=== PATIENT | female | born 1960 | race Caucasian/White ===

== ENCOUNTER 2019-11-08 19:08 | Inpatient (IN) | payer BC ==
[~2019-11-08] VITALS: Ht 165.1 cm; Wt 78.1 kg
[2019-11-08 19:20] VITALS: BP_SYST 117
[2019-11-08 20:47] LABS: HEMATOCRIT 39.9 % (36-48); MEAN CORPUSCULAR HEMOGLOBIN 30 pg (27-31); MEAN CORPUSCULAR HGB CONC 33 % (32-36); MEAN CORPUSCULAR VOLUME 92 fL (79.0-98.0); PLATELET COUNT (AUTO) 407 K/uL (130-430); RED BLOOD CELL COUNT(AUTO) 4.36 MIL/uL (4.2-6.2); RED CELL DISTRIBUTION WIDTH 13.4 % (9.0-15.0); WHITE BLOOD COUNT (AUTO) 24.8 K/uL (4.8-10.8)
[2019-11-08 20:58] LABS: CALCIUM 9.6 mg/dL (8.4-11.0); CREATININE 1.18 mg/dL (0.55-1.30); POTASSIUM 4.7 mmol/L (3.5-5.1)
[2019-11-08] MEDS ORDERED: MORPHINE 4 MG/ML INJ. SYRINGE IVP ONE ×2 (21:00→23:30)
[2019-11-08] MEDS ORDERED: NACL 0.9% 1,000 ML IV ONE ×2 (21:00→23:30)
[2019-11-08] MEDS ORDERED: ONDANSETRON HCL 4 MG/2 ML VIAL IVP ONE ×2 (21:00→23:30)
[2019-11-08 21:02] LABS: BAND % (MANUAL) 4 % (0-6); BASOPHILS % (MANUAL) 0 % (0-2); EOSINOPHILS % (MANUAL) 0 % (0-7); LYMPHOCYTES % (MANUAL) 4 % (20-46); MONOCYTES % (MANUAL) 4 % (0-11)
[2019-11-08 21:03] LABS: ALBUMIN 2.1 g/dL (3.4-4.8); TOTAL BILIRUBIN 0.5 mg/dL (0.0-1.0)
[2019-11-08 21:34] LABS: INR 1.1 (0.8-1.2); PROTHROMBIN TIME 10.6 SECS (9.5-12.5)
[2019-11-08] MEDS ORDERED: metroNIDAZOLE 500 mg/NS 100 ML IV ONE (22:00)
[2019-11-08] MEDS ORDERED: FEM2.5 PO (22:16)
[2019-11-08] MEDS ORDERED: HYDROcodone/ACETAMIN 5-325 MG TAB (NORCO/ VICODIN) PO PRN (23:30)
[2019-11-08] MEDS ORDERED: ONDANSETRON HCL 4 MG/2 ML VIAL IVP PRN (23:30)
[2019-11-08] MEDS ORDERED: ACETAMINOPHEN 325 MG TABLET PO PRN (23:30)
[2019-11-09 00:04] LABS: FREE T4 (FREE THYROXINE) 1.5 ng/dl (0.8-1.5); PHOSPHORUS 2.7 mg/dL (2.7-4.5); THYROID STIMULATING HORMONE 1.73 uIu/mL (0.36-3.74)
[2019-11-09 00:21] VITALS: BP_SYST 100
[2019-11-09] MEDS ORDERED: metroNIDAZOLE 500 mg/NS 100 ML IV ONE (03:10)
[2019-11-09] MEDS: metroNIDAZOLE 500 mg/NS 100 ML IV SCH ×3 (05:11→23:17)
[2019-11-09 07:42] LABS: CHOLESTEROL 111 mg/dL (<200); HDL CHOLESTEROL 34 mg/dL (>55); LDL CHOLESTEROL 55 mg/dL (<100); TRIGLYCERIDES 86 mg/dL (30-150)
[2019-11-09 08:00] VITALS: BP_SYST 111
[2019-11-09] MEDS: MORPHINE 2 MG/ML INJ. SYRINGE IVP PRN ×3 (08:23→23:16)
[2019-11-09] MEDS: DOCUSATE SODIUM 100 MG CAPSULE PO SCH (08:28)
[2019-11-09] MEDS ORDERED: BISACODYL 10 MG/SUPPOSITORY RC PRN ×2 (18:30→20:00)
[2019-11-09 20:00] VITALS: BP_SYST 109; BP_SYST 148
[2019-11-09] MEDS ORDERED: SODIUM PHOSPHATE,MONO-DIBASIC 133 ML ENEMA RC PRN (20:00)
[2019-11-09] MEDS ORDERED: HEPARIN SODIUM,PORCINE 5000 UNITS/ML VIAL SUBCUT SCH (21:00)
[2019-11-09] MEDS: NACL 0.9% 1,000 ML IV SCH (21:13)
[2019-11-09] MEDS: LACTULOSE 20 GM/30 ML UDC PO SCH (21:16)
[2019-11-10 01:37] VITALS: BP_SYST 148
[2019-11-10] MEDS: NACL 0.9% 1,000 ML IV SCH (04:22)
[2019-11-10] MEDS: metroNIDAZOLE 500 mg/NS 100 ML IV SCH (05:37)
[2019-11-10 07:13] LABS: ALBUMIN 1.5 g/dL (3.4-4.8); CALCIUM 7.8 mg/dL (8.4-11.0); CREATININE 0.85 mg/dL (0.55-1.30); PHOSPHORUS 2.2 mg/dL (2.7-4.5); POTASSIUM 4.2 mmol/L (3.5-5.1); TOTAL BILIRUBIN 0.3 mg/dL (0.0-1.0)
[2019-11-10 07:32] LABS: BASOPHILS % (AUTO) 0.2 % (0.0-2.0); EOSINOPHILS # (AUTO) 0.1 K/uL (0.0-0.4); EOSINOPHILS % (AUTO) 0.4 % (0.0-4.0); HEMATOCRIT 35.5 % (36-48); HEMOGLOBIN 11.6 g/dL (12.0-16.0); LYMPHOCYTES # (AUTO) 0.6 K/uL (1.0-5.5); LYMPHOCYTES % (AUTO) 3.5 % (20.5-51.5); MEAN CORPUSCULAR HEMOGLOBIN 30 pg (27-31); MEAN CORPUSCULAR HGB CONC 33 % (32-36); MEAN CORPUSCULAR VOLUME 92 fL (79.0-98.0); MONOCYTES # (AUTO) 0.5 K/uL (0.0-1.0); MONOCYTES % (AUTO) 2.8 % (1.7-9.3); NEUTROPHILS # (AUTO) 15.6 K/uL (1.8-7.7); NEUTROPHILS % (AUTO) 93.1 % (40.0-70.0); PLATELET COUNT (AUTO) 321 K/uL (130-430); RED BLOOD CELL COUNT(AUTO) 3.88 MIL/uL (4.2-6.2); RED CELL DISTRIBUTION WIDTH 13.4 % (9.0-15.0); WHITE BLOOD COUNT (AUTO) 16.8 K/uL (4.8-10.8)
[2019-11-10 08:00] VITALS: BP_SYST 160
[2019-11-10] MEDS: DOCUSATE SODIUM 100 MG CAPSULE PO SCH (09:00)
[2019-11-10] MEDS: LACTULOSE 20 GM/30 ML UDC PO SCH (09:00)
[2019-11-10] MEDS ORDERED: METR500T PO (09:43)
[2019-11-10] MEDS ORDERED: LEVO750T45 PO (09:43)
[2019-11-10 12:42] VITALS: BP_SYST 164
[2019-11-10] MEDS ORDERED: LORazepam 2 MG/ML VIAL IVP ONE (13:00)
[2019-11-10 13:13] VITALS: BP_SYST 168
[2019-11-10] MEDS ORDERED: SENNA 8.8 MG/5 ML UDC PO SCH (23:01)
== END 2019-11-10 14:05 | disposition home or self-care (01) | DRG 686 ==
LOC: SED 19:08 → SMU 23:25
PROVIDERS: ADMIT Family Medicine; ATTEND Family Medicine
DX: D49.59 Neoplasm of unspecified behavior of other genitourinary organ (principal); E43 Unspecified severe protein-calorie malnutrition; R65.10 Systemic inflammatory response syndrome (SIRS) of non-infectious origin without acute organ dysfunction; K59.00 Constipation, unspecified; Z88.0 Allergy status to penicillin; Z90.13 Acquired absence of bilateral breasts and nipples; Z85.3 Personal history of malignant neoplasm of breast; Z68.28 Body mass index [BMI] 28.0-28.9, adult; Z80.3 Family history of malignant neoplasm of breast; Z80.0 Family history of malignant neoplasm of digestive organs
CPT/HCPCS: 36415; 76856-TC; 80053; 80061; 83036; 83605; 83690-TC; 83735-TC; 83880; 84100-TC; 84439; 84443-TC; 85007; 85025; 85027; 85610-TC; 85730-TC; 86304; 86710; 87040-TC; 96361; 96365; 96375; 99291; J1644; J1956; J2060; J2270; J2405; J3490; J7030